=== PATIENT | male | born 1985 | race Caucasian/White ===

== ENCOUNTER 2019-01-04 03:34 | Emergency (ER) | payer SELFPAY ==
[~2019-01-04] VITALS: Ht 172.7 cm; Wt 87.3 kg
[2019-01-04 05:03] LABS: BASOPHILS % 0.7 % (0.0-2.0); HEMATOCRIT. 42.9 % (42.0-52.0); HEMOGLOBIN. 15.1 g/dL (14.0-18.0); LYMPHOCYTES % 37.6 % (20.0-50.0); MEAN CORPUSCULAR HEMOGLOBIN 33.5 pg (28.0-32.0); MEAN CORPUSCULAR VOLUME 95.4 fL (80.0-94.0); MEAN PLATELET VOLUME 7.5 fl (7.4-10.4); MONOCYTES % 8.8 % (2.0-8.0); NEUTROPHILS % 51.9 % (40.0-76.0); PLATELET 335 x1000/uL (130-400); RED CELL DISTRIBUTION WIDTH 12.3 % (11.6-14.6)
[2019-01-04 05:04] VITALS: BP 124/77
[2019-01-04 05:07] LABS: CHLORIDE 107 mEq/L (98-107)
[2019-01-04] MEDS ORDERED: ALPRAZOLAM 0.5 MG TABLET PO ONE (07:00)
== END 2019-01-04 07:59 | disposition home or self-care (01) ==
LOC: ER 04:31
DX: R06.00 Dyspnea, unspecified (principal)
CPT/HCPCS: 36415; 71045; 83880; 84484; 93005; 99284